=== PATIENT | male | born 1960 | race Caucasian/White ===

== ENCOUNTER 2021-09-03 17:00 | Inpatient (IN) ==
[2021-09-03] MEDS ORDERED: SODIUM CHLORIDE 0.9% 1,000 ML IV STA (18:53)
[2021-09-03 20:03] LABS: Basophils % 0.4 % (0.0-0.8); Hematocrit 45.2 VOL% (42.0-52.0); Hemoglobin 16.2 GM/DL (14.0-18.0); Immature Granulocytes Absolute 0.05 #; Lymphocytes # 0.7 10*3/uL (1.4-4.0); Lymphocytes % 13.3 % (21.2-54.2); Mean Corpuscular HGB Conc 35.8 GM/DL (32-36); Mean Corpuscular Volume 103.4 FL (87-102); Mean Platelet Volume 10.9 FL (9.6-12.0); Neutrophils % 77.3 % (38.7-73.9); Platelet Count 197 T/CUMM (130-400); Red Blood Count 4.37 MC/CUMM (3.8-5.5); White Blood Count 4.9 T/CUMM (4-12)
[2021-09-03 20:18] LABS: Albumin 2.2 G/DL (3.4-5.0); Bilirubin,Total 0.4 MG/DL (0.20-1.00); Calcium 8.3 MG/DL (8.5-10.1); Osmolality,Calculated 257.9 MOS/KG (273-304); Total Protein 5.7 G/DL (6.4-8.2)
[2021-09-03 21:00] LABS: ABG Base Excess -5.6 MMOL/L (-2.5-2.5); ABG HCO3 19.8 MMOL/L (20-26); ABG Oxygen Saturation 94.6 % (95-100); ABG PCO2 28.1 MM HG (35-48); ABG PH 7.404 (7.35-7.45); ABG PO2 70.1 MM HG (80-95); ABG TCO2 14.9 MMOL/L (23-27)
[2021-09-03] MEDS ORDERED: ACETAMINOPHEN 325 MG TABLET PO PRN (21:03)
[2021-09-03] MEDS ORDERED: GLUCAGON 1 MG VIAL IM PRN (21:03)
[2021-09-03] MEDS ORDERED: hydrALAZINE 20 MG/1 ML VIAL IV PRN (21:03)
[2021-09-03] MEDS ORDERED: NICOTINE 21 MG/24 HR PATCH TRANSDERM PRN (21:03)
[2021-09-03] MEDS ORDERED: guaiFENesin/DM ER 600-30 MG TABLET PO PRN (21:03)
[2021-09-03] MEDS ORDERED: MAGNESIUM SULF RIDER 2 GM/50 ML PREMIX IV PRN (21:03)
[2021-09-03] MEDS ORDERED: MAGNESIUM SULF RIDER 4 GM/100 ML PREMIX IV PRN (21:03)
[2021-09-03] MEDS ORDERED: ONDANSETRON 4 MG/2 ML VIAL IV PRN (21:03)
[2021-09-03] MEDS ORDERED: POTASSIUM CHLORIDE RIDER 10 MEQ/100 ML PREMIX IV PRN (21:21)
[2021-09-03] MEDS ORDERED: guaiFENesin/CODEINE 5 ML LIQUID PO PRN (21:28)
[2021-09-03] MEDS ORDERED: DEXTROSE 10% 250 ML BAG IV PRN ×2 (21:29→23:59)
[2021-09-03] MEDS ORDERED: LORazepam 1 MG TABLET PO PRN (21:34)
[2021-09-03] MEDS ORDERED: PIPERACILLIN/TAZOBACTAM 3,375 MG in SODIUM CHLORIDE 0.9% 100 ML IV SCH (22:00)
[2021-09-03 22:10] LABS: INR 1.7; PT Patient Result 18.1 SECS (10.5-12.0)
[2021-09-03] MEDS: ENOXAPARIN 40 MG/0.4 ML SYRINGE SUBCUT SCH (23:01)
[2021-09-03] MEDS: SODIUM CHLORIDE 0.9% 1,000 ML IV SCH (23:10)
[2021-09-03] MEDS: AZITHROMYCIN INJ 500 MG in SODIUM CHLORIDE 0.9% 250 ML IV SCH (23:10)
[2021-09-03] MEDS: PIPERACILLIN/TAZOBACTAM 3,375 MG in SODIUM CHLORIDE 0.9% 100 ML IV SCH (23:53)
[2021-09-04] MEDS ORDERED: ALBUTEROL/IPRATROPIUM 3 ML NEB RESP TX SCH (01:00)
[2021-09-04] MEDS: ALBUTEROL INHALER 18 GM INH SCH ×3 (02:07→18:10)
[2021-09-04 04:53] LABS: Basophils # 0.1 10*3/uL (0.0-0.2); Basophils % 1.1 % (0.0-0.8); Hematocrit 46.6 VOL% (42.0-52.0); Hemoglobin 16.3 GM/DL (14.0-18.0); Immature Granulocytes % 1.3 %; Immature Granulocytes Absolute 0.06 #; Lymphocytes # 0.9 10*3/uL (1.4-4.0); Lymphocytes % 21.1 % (21.2-54.2); Mean Platelet Volume 11.1 FL (9.6-12.0); Monocytes % 12.8 % (1.7-12.7); Neutrophils % 63.7 % (38.7-73.9); Platelet Count 212 T/CUMM (130-400); Red Blood Count 4.48 MC/CUMM (3.8-5.5); Red Cell Distribution Width 14.3 % (9.3-17.3); White Blood Count 4.5 T/CUMM (4-12)
[2021-09-04] MEDS ORDERED: THIAMINE INJ 100 MG, FOLIC ACID INJ 1 MG, MULTIVITAMIN INJ 10 ML in SODIUM CHLORIDE 0.9... IV SCH (05:00)
[2021-09-04 05:17] LABS: Ferritin 934.2 ng/mL (26-388); Thyroid Stimulating Hormone 0.407 uIU/ml (0.358-3.74); VLDL Cholesterol 27.2 MG/DL
[2021-09-04] MEDS: SODIUM CHLORIDE 0.9% 1,000 ML IV SCH ×2 (06:06→18:10)
[2021-09-04] MEDS: PIPERACILLIN/TAZOBACTAM 3,375 MG in SODIUM CHLORIDE 0.9% 100 ML IV SCH ×3 (07:04→23:30)
[2021-09-04] MEDS ORDERED: REMDESIVIR 200 MG in SODIUM CHLORIDE 0.9% 210 ML IV ONE (08:00)
[2021-09-04] MEDS: ZINC GLUCONATE 50 MG TABLET PO SCH (09:24)
[2021-09-04] MEDS: MULTIVITAMIN (CENTRUM) TABLET PO SCH (09:25)
[2021-09-04] MEDS: THIAMINE 100 MG TABLET PO SCH (09:25)
[2021-09-04] MEDS: CETIRIZINE 10 MG TABLET PO SCH (09:25)
[2021-09-04] MEDS: ASCORBIC ACID 500 MG TABLET PO SCH ×2 (09:26→21:14)
[2021-09-04] MEDS: DOCUSATE SODIUM 100 MG CAPSULE PO SCH ×2 (09:26→21:14)
[2021-09-04] MEDS: CHOLECALCIFEROL 1,000 UNIT TABLET PO SCH (09:26)
[2021-09-04] MEDS: FOLIC ACID 1 MG TABLET PO SCH (09:27)
[2021-09-04] MEDS: PANTOPRAZOLE 40 MG TABLET PO SCH (09:27)
[2021-09-04] MEDS: DEXAMETHASONE 4 MG/1 ML VIAL IV SCH (09:29)
[2021-09-04] MEDS ORDERED: buPROPion SR 150 MG TABLET PO ONE (17:33)
[2021-09-04] MEDS: ENOXAPARIN 40 MG/0.4 ML SYRINGE SUBCUT SCH (21:14)
[2021-09-04] MEDS: AZITHROMYCIN INJ 500 MG in SODIUM CHLORIDE 0.9% 250 ML IV SCH (21:15)
[2021-09-05] MEDS: PIPERACILLIN/TAZOBACTAM 3,375 MG in SODIUM CHLORIDE 0.9% 100 ML IV SCH ×2 (06:02→16:47)
[2021-09-05 06:27] LABS: Basophils % 0.3 % (0.0-0.8); Eosinophils % 1.3 % (0.00-10.9); Hematocrit 47.7 VOL% (42.0-52.0); Hemoglobin 16.8 GM/DL (14.0-18.0); Immature Granulocytes Absolute 0.03 #; Lymphocytes # 0.9 10*3/uL (1.4-4.0); Lymphocytes % 28.9 % (21.2-54.2); Mean Corpuscular HGB Conc 35.2 GM/DL (32-36); Mean Corpuscular Volume 104.6 FL (87-102); Mean Platelet Volume 11.1 FL (9.6-12.0); Monocytes % 14.9 % (1.7-12.7); Neutrophils % 53.6 % (38.7-73.9); Platelet Count 170 T/CUMM (130-400); Red Blood Count 4.56 MC/CUMM (3.8-5.5); Red Cell Distribution Width 14.4 % (9.3-17.3); White Blood Count 3.2 T/CUMM (4-12)
[2021-09-05 06:49] LABS: Anisocytosis 1+; Band Neutrophils 12 % (0-10); Lymphocytes 23 % (20-55); Macrocytosis 1+; Platelet Estimate Normal; Segmented Neutrophils 49 % (50-85); Total Cells Counted 100
[2021-09-05 06:50] LABS: Atypical Lymphocytes Few
[2021-09-05 06:51] LABS: Ferritin 887.8 ng/mL (26-388)
[2021-09-05 06:53] LABS: Albumin 1.9 G/DL (3.4-5.0); Bilirubin,Total 0.4 MG/DL (0.20-1.00); Calcium 8.9 MG/DL (8.5-10.1); Osmolality,Calculated 279.4 MOS/KG (273-304); Total Protein 5.5 G/DL (6.4-8.2)
[2021-09-05] MEDS: ALBUTEROL INHALER 18 GM INH SCH ×5 (08:47→19:12)
[2021-09-05] MEDS: DEXAMETHASONE 4 MG/1 ML VIAL IV SCH (08:48)
[2021-09-05] MEDS: DOCUSATE SODIUM 100 MG CAPSULE PO SCH (08:49)
[2021-09-05] MEDS: PANTOPRAZOLE 40 MG TABLET PO SCH (08:50)
[2021-09-05] MEDS: MULTIVITAMIN (CENTRUM) TABLET PO SCH (08:50)
[2021-09-05] MEDS: buPROPion SR 150 MG TABLET PO SCH (08:50)
[2021-09-05] MEDS: ZINC GLUCONATE 50 MG TABLET PO SCH (08:50)
[2021-09-05] MEDS: CHOLECALCIFEROL 1,000 UNIT TABLET PO SCH (08:50)
[2021-09-05] MEDS: ASCORBIC ACID 500 MG TABLET PO SCH ×2 (08:50→20:44)
[2021-09-05] MEDS: FOLIC ACID 1 MG TABLET PO SCH (08:50)
[2021-09-05] MEDS: CETIRIZINE 10 MG TABLET PO SCH (08:50)
[2021-09-05] MEDS: THIAMINE 100 MG TABLET PO SCH (10:17)
[2021-09-05] MEDS: REMDESIVIR 100 MG in SODIUM CHLORIDE 0.9% 100 ML IV SCH (10:33)
[2021-09-05] MEDS: SODIUM CHLORIDE 0.9% 1,000 ML IV SCH (10:35)
[2021-09-05] MEDS: ENOXAPARIN 40 MG/0.4 ML SYRINGE SUBCUT SCH (20:44)
[2021-09-06] MEDS: ALBUTEROL INHALER 18 GM INH SCH ×4 (02:07→20:57)
[2021-09-06 05:36] LABS: Basophils % 0.3 % (0.0-0.8); Hematocrit 45.3 VOL% (42.0-52.0); Hemoglobin 15.8 GM/DL (14.0-18.0); Immature Granulocytes % 0.8 %; Immature Granulocytes Absolute 0.06 #; Lymphocytes # 1.1 10*3/uL (1.4-4.0); Lymphocytes % 14.7 % (21.2-54.2); Mean Corpuscular HGB Conc 34.9 GM/DL (32-36); Mean Corpuscular Volume 104.6 FL (87-102); Mean Platelet Volume 11.1 FL (9.6-12.0); Monocytes % 10.8 % (1.7-12.7); Neutrophils % 73.4 % (38.7-73.9); Platelet Count 235 T/CUMM (130-400); Red Blood Count 4.33 MC/CUMM (3.8-5.5); Red Cell Distribution Width 14.1 % (9.3-17.3); White Blood Count 7.2 T/CUMM (4-12)
[2021-09-06 06:00] LABS: Ferritin 714.3 ng/mL (26-388)
[2021-09-06 06:01] LABS: Bilirubin,Total 0.4 MG/DL (0.20-1.00); Calcium 9.4 MG/DL (8.5-10.1); Osmolality,Calculated 275.5 MOS/KG (273-304); Potassium 3.1 MMOL/L (3.5-5.1); Total Protein 6.1 G/DL (6.4-8.2)
[2021-09-06] MEDS: ZINC GLUCONATE 50 MG TABLET PO SCH (08:33)
[2021-09-06] MEDS: MULTIVITAMIN (CENTRUM) TABLET PO SCH (08:33)
[2021-09-06] MEDS: buPROPion SR 150 MG TABLET PO SCH (08:33)
[2021-09-06] MEDS: THIAMINE 100 MG TABLET PO SCH (08:33)
[2021-09-06] MEDS: FOLIC ACID 1 MG TABLET PO SCH (08:34)
[2021-09-06] MEDS: CETIRIZINE 10 MG TABLET PO SCH (08:34)
[2021-09-06] MEDS: ASCORBIC ACID 500 MG TABLET PO SCH ×2 (08:34→20:56)
[2021-09-06] MEDS: CHOLECALCIFEROL 1,000 UNIT TABLET PO SCH (08:34)
[2021-09-06] MEDS: PANTOPRAZOLE 40 MG TABLET PO SCH (08:34)
[2021-09-06] MEDS: DEXAMETHASONE 4 MG/1 ML VIAL IV SCH (08:35)
[2021-09-06] MEDS: LEVOFLOXACIN INJ 500 MG/100 ML PREMIX IV SCH (08:36)
[2021-09-06] MEDS: REMDESIVIR 100 MG in SODIUM CHLORIDE 0.9% 100 ML IV SCH (09:51)
[2021-09-06] MEDS: SODIUM CHLORIDE 0.9% 1,000 ML IV SCH (10:17)
[2021-09-06] MEDS ORDERED: POTASSIUM CHLORIDE 20 MEQ TABLET PO ONE (13:00)
[2021-09-06] MEDS ORDERED: LOPERAMIDE 2 MG CAPSULE PO PRN (17:33)
[2021-09-06] MEDS: ENOXAPARIN 40 MG/0.4 ML SYRINGE SUBCUT SCH (20:57)
[2021-09-07] MEDS: ALBUTEROL INHALER 18 GM INH SCH ×2 (01:35→06:16)
[2021-09-07] MEDS: SODIUM CHLORIDE 0.9% 1,000 ML IV SCH ×2 (04:12→15:09)
[2021-09-07 07:10] LABS: Basophils % 0.3 % (0.0-0.8); Eosinophils % 0.2 % (0.00-10.9); Hemoglobin 15.8 GM/DL (14.0-18.0); Immature Granulocytes % 0.5 %; Immature Granulocytes Absolute 0.05 #; Lymphocytes # 1.1 10*3/uL (1.4-4.0); Lymphocytes % 11.6 % (21.2-54.2); Mean Corpuscular HGB Conc 35.9 GM/DL (32-36); Mean Corpuscular Volume 101.1 FL (87-102); Mean Platelet Volume 11.6 FL (9.6-12.0); Monocytes % 9.9 % (1.7-12.7); Neutrophils % 77.5 % (38.7-73.9); Platelet Count 215 T/CUMM (130-400); Red Blood Count 4.35 MC/CUMM (3.8-5.5); Red Cell Distribution Width 14.2 % (9.3-17.3); White Blood Count 9.4 T/CUMM (4-12)
[2021-09-07] MEDS ORDERED: POTASSIUM CHLORIDE 20 MEQ TABLET PO PRN (07:21)
[2021-09-07 07:31] LABS: Albumin 2.1 G/DL (3.4-5.0); Bilirubin,Total 0.6 MG/DL (0.20-1.00); Calcium 9.1 MG/DL (8.5-10.1); Ferritin 897.9 ng/mL (26-388); Potassium 2.9 MMOL/L (3.5-5.1); Total Protein 6.2 G/DL (6.4-8.2)
[2021-09-07 07:37] LABS: Osmolality,Calculated 271.8 MOS/KG (273-304)
[2021-09-07 07:38] LABS: Lymphocytes 5 % (20-55); Macrocytosis 1+; Segmented Neutrophils 84 % (50-85); Total Cells Counted 100
[2021-09-07 07:39] LABS: Target Cells Slight
[2021-09-07] MEDS: ZINC GLUCONATE 50 MG TABLET PO SCH (09:02)
[2021-09-07] MEDS: PANTOPRAZOLE 40 MG TABLET PO SCH (09:02)
[2021-09-07] MEDS: MULTIVITAMIN (CENTRUM) TABLET PO SCH (09:02)
[2021-09-07] MEDS: ASCORBIC ACID 500 MG TABLET PO SCH (09:02)
[2021-09-07] MEDS: FOLIC ACID 1 MG TABLET PO SCH (09:02)
[2021-09-07] MEDS: buPROPion SR 150 MG TABLET PO SCH (09:02)
[2021-09-07] MEDS: CETIRIZINE 10 MG TABLET PO SCH (09:02)
[2021-09-07] MEDS: DEXAMETHASONE 4 MG/1 ML VIAL IV SCH (09:02)
[2021-09-07] MEDS: CHOLECALCIFEROL 1,000 UNIT TABLET PO SCH (09:02)
[2021-09-07] MEDS: THIAMINE 100 MG TABLET PO SCH (09:02)
[2021-09-07] MEDS: LEVOFLOXACIN INJ 500 MG/100 ML PREMIX IV SCH (09:30)
[2021-09-07] MEDS: REMDESIVIR 100 MG in SODIUM CHLORIDE 0.9% 100 ML IV SCH (10:35)
[2021-09-07 11:39] VITALS: BP 123/79
[2021-09-08] MEDS ORDERED: POTASSIUM CHLORIDE 20 MEQ TABLET PO SCH (09:00)
[2021-09-08] MEDS ORDERED: predniSONE 20 MG TABLET PO SCH (09:00)
== END 2021-09-07 15:20 | disposition home or self-care (01) | DRG 177 ==
LOC: EDUNIT# → EDBD → N.ED 17:00 → N.EDINP 21:03 → N.3E 09-04 08:56
PROVIDERS: ADMIT Hospitalist; ATTEND Hospitalist